=== PATIENT | female | born 1960 | race Caucasian/White ===

== ENCOUNTER → 2017-06-21 | Outpatient (CLI) | payer BC ==
[2015-01-28 10:10] VITALS: BP 148/93
[~2017-06-21] MED LIST: PHEN100C PO; WARF5TAB7 PO
== END | disposition home or self-care (01) ==
LOC: PMGWOUND 09:03
PROVIDERS: ATTEND Preventive Medicine Undersea and Hyperbaric Medicine
DX: I87.311 Chronic venous hypertension (idiopathic) with ulcer of right lower extremity (principal); L97.811 Non-pressure chronic ulcer of other part of right lower leg limited to breakdown of skin; Z86.718 Personal history of other venous thrombosis and embolism; K21.9 Gastro-esophageal reflux disease without esophagitis; Z87.891 Personal history of nicotine dependence; Z72.89 Other problems related to lifestyle
CPT/HCPCS: 97597

== ENCOUNTER → 2017-06-28 | Outpatient (CLI) | payer BC ==
[2015-01-28 10:10] VITALS: BP 148/93
== END | disposition home or self-care (01) ==
LOC: PMGWOUND 09:28
PROVIDERS: ATTEND Preventive Medicine Undersea and Hyperbaric Medicine
DX: I87.311 Chronic venous hypertension (idiopathic) with ulcer of right lower extremity (principal); L97.811 Non-pressure chronic ulcer of other part of right lower leg limited to breakdown of skin; Z86.718 Personal history of other venous thrombosis and embolism; K21.9 Gastro-esophageal reflux disease without esophagitis; Z87.891 Personal history of nicotine dependence
CPT/HCPCS: 29581; 97597

== ENCOUNTER → 2017-06-30 | Outpatient (CLI) | payer BC ==
[2015-01-28 10:10] VITALS: BP 148/93
== END | disposition home or self-care (01) ==
LOC: PMGWOUND 07:28
PROVIDERS: ATTEND Preventive Medicine Undersea and Hyperbaric Medicine
DX: I87.311 Chronic venous hypertension (idiopathic) with ulcer of right lower extremity (principal); L97.811 Non-pressure chronic ulcer of other part of right lower leg limited to breakdown of skin; K21.9 Gastro-esophageal reflux disease without esophagitis; Z86.718 Personal history of other venous thrombosis and embolism; Z87.891 Personal history of nicotine dependence; Z72.89 Other problems related to lifestyle
CPT/HCPCS: 29581

== ENCOUNTER → 2017-07-05 | Outpatient (CLI) | payer BC ==
[2015-01-28 10:10] VITALS: BP 148/93
== END | disposition home or self-care (01) ==
LOC: PMGWOUND 11:30
PROVIDERS: ATTEND Emergency Medicine Undersea and Hyperbaric Medicine
DX: I87.311 Chronic venous hypertension (idiopathic) with ulcer of right lower extremity (principal); L97.211 Non-pressure chronic ulcer of right calf limited to breakdown of skin; K21.9 Gastro-esophageal reflux disease without esophagitis; Z86.718 Personal history of other venous thrombosis and embolism; Z87.891 Personal history of nicotine dependence; Z72.89 Other problems related to lifestyle
CPT/HCPCS: 29581; 97597

== ENCOUNTER → 2017-07-12 | Outpatient (CLI) | payer BC ==
[2015-01-28 10:10] VITALS: BP 148/93
== END | disposition home or self-care (01) ==
LOC: PMGWOUND 11:31
PROVIDERS: ATTEND Preventive Medicine Undersea and Hyperbaric Medicine
DX: I87.311 Chronic venous hypertension (idiopathic) with ulcer of right lower extremity (principal); L97.211 Non-pressure chronic ulcer of right calf limited to breakdown of skin; K21.9 Gastro-esophageal reflux disease without esophagitis; Z87.891 Personal history of nicotine dependence; Z86.718 Personal history of other venous thrombosis and embolism; Z72.89 Other problems related to lifestyle
CPT/HCPCS: 29581; 97597

== ENCOUNTER → 2017-07-19 | Outpatient (CLI) | payer BC ==
[2015-01-28 10:10] VITALS: BP 148/93
== END | disposition home or self-care (01) ==
LOC: PMGWOUND 11:28
PROVIDERS: ATTEND Preventive Medicine Undersea and Hyperbaric Medicine
DX: I87.311 Chronic venous hypertension (idiopathic) with ulcer of right lower extremity (principal); L97.211 Non-pressure chronic ulcer of right calf limited to breakdown of skin; K21.9 Gastro-esophageal reflux disease without esophagitis; Z86.718 Personal history of other venous thrombosis and embolism; Z87.891 Personal history of nicotine dependence; Z72.89 Other problems related to lifestyle
CPT/HCPCS: 97597

== ENCOUNTER → 2017-08-04 | Outpatient (CLI) | payer BC ==
[2015-01-28 10:10] VITALS: BP 148/93
== END | disposition home or self-care (01) ==
LOC: PMGWOUND 11:39
PROVIDERS: ATTEND Preventive Medicine Undersea and Hyperbaric Medicine
DX: I87.311 Chronic venous hypertension (idiopathic) with ulcer of right lower extremity (principal); L97.211 Non-pressure chronic ulcer of right calf limited to breakdown of skin; K21.9 Gastro-esophageal reflux disease without esophagitis; Z87.891 Personal history of nicotine dependence; Z86.718 Personal history of other venous thrombosis and embolism; Z72.89 Other problems related to lifestyle
CPT/HCPCS: 29581

== ENCOUNTER → 2017-08-18 | Outpatient (CLI) | payer BC ==
[2015-01-28 10:10] VITALS: BP 148/93
== END | disposition home or self-care (01) ==
LOC: PMGWOUND 11:34
PROVIDERS: ATTEND Preventive Medicine Undersea and Hyperbaric Medicine
DX: I87.311 Chronic venous hypertension (idiopathic) with ulcer of right lower extremity (principal); L97.211 Non-pressure chronic ulcer of right calf limited to breakdown of skin; K21.9 Gastro-esophageal reflux disease without esophagitis; Z72.89 Other problems related to lifestyle; Z87.891 Personal history of nicotine dependence; Z86.718 Personal history of other venous thrombosis and embolism
CPT/HCPCS: 99214

== ENCOUNTER → 2018-03-20 | Outpatient (CLI) | payer BC | END | disposition home or self-care (01) | LOC: KCIC 09:09 | DX: M79.89 Other specified soft tissue disorders (principal); K21.9 Gastro-esophageal reflux disease without esophagitis | CPT/HCPCS: 73610 ==

== ENCOUNTER → 2019-02-25 | Outpatient (CLI) | payer BC ==
[2015-01-28 10:10] VITALS: BP 148/93
[~2019-02-25] MED LIST changes: +WARF-31 PO; -WARF5TAB7 PO
--- NOTE | 2019-02-25 11:38 | KCIC ---
MR of the right knee HISTORY: Right knee pain, anterior and posterior. Injury a few days ago. TECHNIQUE: Routine multiplanar sequences are obtained. FINDINGS: Degenerative signal within the posterior root of the medial meniscus. No evidence of lateral meniscal tear. The anterior and posterior cruciate ligaments are intact. Medial collateral ligament demonstrates a proximal sprain. Iliotibial band unremarkable. Fibular collateral ligament and biceps femoris tendon are intact. Popliteus tendon intact. Extensor mechanism intact. Moderate joint effusion. No evidence of osteochondral loose body. Moderate joint effusion. Severe chondral loss at the patella, less so at the femoral trochlea. There is also mild chondromalacia at the medial femoral condyle. No aggressive bone destruction. No acute fracture. Trace Adames's cyst. Diffuse subcutaneous edema. IMPRESSION: 1. Degenerative changes at the posterior root attachment to the medial meniscus without clear-cut avulsion. 2. Degenerative change. 3. Moderate joint effusion. Electronically signed by: Munir Lozano MD (02/25/2019 11:35 AM) [facility]
== END | disposition home or self-care (01) ==
LOC: KCIC MRI 08:32
PROVIDERS: ATTEND Physician Assistant
DX: S83.411A Sprain of medial collateral ligament of right knee, initial encounter (principal); M17.11 Unilateral primary osteoarthritis, right knee; M25.461 Effusion, right knee; M94.261 Chondromalacia, right knee; X58.XXXA Exposure to other specified factors, initial encounter; Y93.89 Activity, other specified; Y92.89 Other specified places as the place of occurrence of the external cause; Y99.8 Other external cause status
CPT/HCPCS: 73721

== ENCOUNTER → 2019-04-15 | Outpatient (CLI) | payer BC ==
[2015-01-28 10:10] VITALS: BP 148/93
--- NOTE | 2019-04-15 17:21 | KCIC ---
Bilateral digital screening mammograms: Reason for examination: Routine screening. Comparison is made to previous study dated 12/31/2014. Interpretation was made with the benefit of CAD. The skin and nipples show no abnormalities. No abnormal axillary lymph nodes are seen. The breast parenchyma is heterogeneously dense. (Breast density: Category C.) There appears to be a new nodular density in the left breast at the 2:30 C position measuring approximately 8.4 mm in size. Further evaluation with ultrasound is recommended. There are no other new dominant masses, suspicious calcifications or architectural distortion. Impression: 8.4 mm nodule at the 2:30 C position of the left breast. Recommend further evaluation with ultrasound. Your patient's mammogram demonstrates that she has dense breast tissue (breast density category C or D), which could hide abnormalities, and if she has other risk factors for breast cancer that have been identified, she might benefit from supplemental screening tests that may be suggested by you as her ordering physician. Dense breast tissue, in and of itself, is a relatively common condition. Therefore, this information is not provided to cause undue concern, but rather to raise your awareness and to promote discussion with your patient regarding the presence of other risk factors, in addition to dense breast tissue. Your patient's mammography results will be sent to her. BI-RAD Category 0: Incomplete. Needs additional imaging evaluation. "Our facility is accredited by the [employer] Mammography Program." This patient's information has been entered into a reminder system for the patient to be notified with the results of her examination and a target date for the next mammogram. Electronically signed by: Harriet Mcdermott MD (04/15/2019 5:18 PM) [facility]
== END | disposition home or self-care (01) ==
LOC: KCIC MAMMO 16:52
PROVIDERS: ATTEND Nurse Practitioner Family
DX: Z12.31 Encounter for screening mammogram for malignant neoplasm of breast (principal); N63.21 Unspecified lump in the left breast, upper outer quadrant
CPT/HCPCS: 77067

== ENCOUNTER → 2019-05-02 | Outpatient (CLI) | payer BC ==
[2015-01-28 10:10] VITALS: BP 148/93
--- NOTE | 2019-05-02 12:04 | KCIC ---
INDICATION: 58 year-old female presents for further evaluation of an abnormality seen on prior mammogram TECHNIQUE: Targeted high resolution sonography of the region of mammographic abnormality in the upper outer left breast was performed. COMPARISON: None ULTRASOUND FINDINGS: Targeted ultrasound of the upper outer left breast 2:30 position, 7 cm from the nipple: A 0.9 x 0.6 x 2.7 cm hypoechoic structure with thin internal septation and gentle lobulation is suspicious for a complicated cyst. IMPRESSION: Probably benign finding. RECOMMENDATION: Recommend follow up left breast ultrasound in 6 months. BI-RADS 3: Probably Benign Electronically signed by: Rajeev Truong MD (05/02/2019 12:01 PM) [facility]
== END | disposition home or self-care (01) ==
LOC: KCIC US 11:10
PROVIDERS: ATTEND Nurse Practitioner Family
DX: R92.8 Other abnormal and inconclusive findings on diagnostic imaging of breast (principal)
CPT/HCPCS: 76641

== ENCOUNTER → 2019-11-11 | Outpatient (CLI) | payer BC ==
[2015-01-28 10:10] VITALS: BP 148/93
--- NOTE | 2019-11-11 10:29 | KCIC ---
EXAM: Left breast sonogram. HISTORY: 59-year-old female presents for follow-up evaluation of a suspected complicated cyst. TECHNIQUE: Sonographic imaging of the left breast targeted to the site of prior abnormality was performed. COMPARISON: 05/02/2019. FINDINGS: There is a bilobed hypoechoic lesion at the 2:30 position 7 cm from the nipple measuring 6 mm in maximum dimension, decreased compared to a prior maximum measurement of 9 mm. The absence of internal blood flow and presence of slight posterior through transmission favors a complex cyst with internal septation. No convincing solid lesion is seen. No new lesion is seen. IMPRESSION: 1. Slight decreased size in a suspected complex cyst with internal septation at the 2:30 position 7 cm from the nipple. There is no new suspicious sonographic finding. 2. BI-RADS Category 2: Benign finding(s). The patient will be due for bilateral mammography in 5 months according to a previously established mammography interval. Electronically signed by: Maris Christopher MD (11/11/2019 10:26 AM) [id number]
== END | disposition home or self-care (01) ==
LOC: KCIC US 09:57
PROVIDERS: ATTEND Nurse Practitioner Family
DX: N64.89 Other specified disorders of breast (principal)
CPT/HCPCS: 76641

== ENCOUNTER → 2020-04-10 | Outpatient (CLI) | payer BC ==
[2015-01-28 10:10] VITALS: BP 148/93
[~2020-04-10] MED LIST changes: +SERT50TA PO
== END | disposition home or self-care (01) ==
LOC: LAB 14:25
PROVIDERS: ATTEND Surgery
DX: Z11.59 Encounter for screening for other viral diseases (principal)
CPT/HCPCS: U0003-CS

== ENCOUNTER 2020-04-15 06:06 | Day surgery (SDC) | payer BC ==
[~2020-04-15] VITALS: Ht 167.6 cm; Wt 90.5 kg
[2020-04-15] MEDS ORDERED: fentaNYL PF VIAL 100 MCG/2 ML VIAL IV PRN ×2 (07:00)
[2020-04-15] MEDS ORDERED: IV RINGERS,LACTATED 1000ML 1,000 ML IV SCH (07:00)
[2020-04-15] MEDS ORDERED: PROCHLORPERAZINE 10 MG/2 ML VIAL. IV PRN (07:00)
[2020-04-15] MEDS ORDERED: ONDANSETRON PF 4 MG/2 ML VIAL. IV PRN (07:00)
[2020-04-15] MEDS ORDERED: HYDROmorphone 2 MG/ML VIAL IV PRN (07:00)
[2020-04-15] MEDS ORDERED: fentaNYL PF VIAL 100 MCG/2 ML VIAL ONE ×4 (07:02→09:44)
[2020-04-15] MEDS ORDERED: MIDAZOLAM HCL/PF 2 MG/2 ML VIAL. ONE (07:02)
[2020-04-15] MEDS ORDERED: ONDANSETRON PF 4 MG/2 ML VIAL. ONE (07:03)
[2020-04-15] MEDS ORDERED: LIDOCAINE 2% PF 5 ML VIAL. ONE (07:03)
[2020-04-15] MEDS ORDERED: DEXAMETHASONE SOD PHOS 4 MG/ML VIAL ONE ×2 (07:03)
[2020-04-15] MEDS ORDERED: PROPOFOL 10 MG/ML (20ML) VIAL. IV ONE (07:03)
[2020-04-15] MEDS ORDERED: LIDOCAINE 1%/EPI 1:100,000 20 ML VIAL. ONE (07:09)
--- NOTE | 2020-04-15 10:26 | PDOC4 ---
Operative Note Operative Note Operative Note: Preoperative Diagnosis: Multiple lipomas bilateral thighs, left arm Postoperative Diagnosis: Same Procedure: Excision of multiple lipomas bilateral thighs, left arm Surgeon: Hector Anesthesia: General EBL: 25 mL Specimen: Multiple lipomas to pathology Drains: None Complications: None Indication: The patient is a 59-year-old female who was referred due to multiple lipomas involving her bilateral thighs and left arm. They have enlarge significantly and several are causing discomfort particularly of the left thigh. She requests excision and the areas of interest were marked preoperatively. The risks of surgery were discussed which include bleeding, infection, r ecurrence, pain, anesthetic risk, potential need for additional surgery procedure. She understands and would like to proceed. Description: The patient was taken the operating room and placed supine in the operating table. General anesthesia was performed. The bilateral anterior thighs and left arm were prepped with ChloraPrep and draped in a standard surgical manner. A similar technique was used at all locations. We began in the left thigh and a total of 8 incisions were made overlying the marked loca tions of lipomas. In the subcutaneous space there were multiple lobulated lipomas covering a wide area. Each was excised and they measured from up 1 up to 6 cm in greatest dimension. They were all sent to pathology for evaluation. Hemostasis was achieved with cautery and the incisions were closed with 4 Monocryl. In a similar manner 4 separate incisions were made of the right thigh and multiple lipomas were excised and sent to pathology. These incisions were also closed with 4-0 Monocryl. In the left posterior lateral aspect there was a single lipoma which was excised through a separate incision. This was also sent to pathology and closed with 4-0 Monocryl. In the left arm 2 lipomas were present 1 in the distal upper arm and 1 in the forearm. Both were excised through separate incisions and both measured 4 x 2 and half centimeters. The skin was closed at both locations with 4-0 Monocryl. Steri-Strips and dressings were then applied. The patient tolerated the procedure well and was sent to the recovery room in stable condition. At the end of the case all counts were correct ABRAHAM HERNANDEZ MD Apr 15, 2020 10:26
--- NOTE | 2020-04-15 10:29 | DISCH ---
DISCHARGE INSTRUCTIONS Condition on Discharge Condition on Discharge: Stable Activity After Discharge Activity Instructions for Disc: Activity as tolerated Diet after Discharge Diet after Discharge: Regular Wound Incision Care Wound/Incision Care: Other, see below (keep dressings clean and dry X 72 hours, may then remove and shower) Follow-Up Follow up with: Dr Hernandez in 2-3 weeks in office, call for appt [phone] ABRAHAM HERNANDEZ MD Apr 15, 2020 10:29
[2020-04-15] MEDS ORDERED: MORPHINE SULFATE 2 MG/ML VIAL. ONE (10:55)
[2020-04-15] MEDS: MORPHINE SULFATE 2 MG/ML VIAL. IV PRN ×2 (10:57→11:15)
[2020-04-15] MEDS ORDERED: oxyCODONE/APAP 5/325 1 TAB TABLET ONE (11:08)
[2020-04-15] MEDS ORDERED: oxyCODONE/APAP 5/325 1 TAB TABLET PO ONE (11:15)
[2020-04-15 11:30] VITALS: BP 161/95
--- NOTE | 2020-04-17 17:07 | PATHOLOGY ---
[facility] Accession Number: [id number] . 01 Material submitted: . PART A: thigh - LEFT THIGH LIPOMAS. Modifiers: left PART B: thigh - RIGHT THIGH LIPOMAS. Modifiers: right PART C: arm - LEFT ARM LIPOMAS. Modifiers: left . 01 Clinical history: . Multiple fatty tumors arms and legs . 02 Diagnosis: A. 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 . B. Segments of fibroadipose tissue, right thigh tumors excision: - Lipomas. . C. Segments of fibroadipose tissue, left arm tumors excision: - Lipomas, showing focal features of angiolipoma. (JPM:anup; 04/17/2020) [facility] 04/17/2020 1649 Local . 02 Comment: There is no evidence of malignancy. (JPM:anup; 04/17/2020) . 02 Electronically signed: . Matt Chow MD, Pathologist NPI- [id number] . 01 Gross description: . A. The specimen is received in formalin, labeled "Dye, Conchita, left thigh lipomas" and consists of multiple irregular to encapsulated segments of yellow adipose tissue measuring 19.0 x 15.5 x 3.6 cm in aggregate. Sectioning reveals homogeneous yellow cut surfaces with focal fibrous aspects and focal calcifications. [employer] sections are submitted in A1-A7 with A6 following decalcification. . B. The specimen is received in formalin, labeled "Dye, Conchita, right thigh lipomas" and consists of multiple irregular to encapsulated segments of yellow lobulated tissue measuring 11.3 x 8.6 x 2.7 cm in aggregate. Sectioning reveals homogeneous yellow cut surfaces with no gross lesions. [employer] sections are submitted in B1-B3. . C. The specimen is received in formalin, labeled "Dye, Conchita, left arm lipomas" and consists of 3 irregular to encapsulated segments of yellow lobulated tissue measuring 6.3 x 5.0 x 1.5 cm in aggregate. Sectioning reveals yellow homogeneous cut surfaces with focal hemorrhage. [employer] sections are submitted in C1-C2. (SDY; 04/16/2020) [facility] 04/16/2020 1310 Local . 02 Pathologist provided ICD-10: D17.24, D17.23, D17.22 . 02 CPT . 098319, 181792, 437535, 488276 Specimen Comment: A courtesy copy of this report has been sent to [phone], [phone] Specimen Comment: [id number] Specimen Comment: Report sent to / DR CADET Performed at: 01 [facility] [address], [place] [id number] MD Lam Shelton MD Phone: [phone] Performed at: 02 [facility] [address], [place] [id number] MD Matt Chow MD Phone: [phone]
== END 2020-04-15 11:56 | disposition home or self-care (01) ==
LOC: SURG 06:06
PROVIDERS: ATTEND Surgery
DX: D17.24 Benign lipomatous neoplasm of skin and subcutaneous tissue of left leg (principal); D17.23 Benign lipomatous neoplasm of skin and subcutaneous tissue of right leg; D17.22 Benign lipomatous neoplasm of skin and subcutaneous tissue of left arm; G40.909 Epilepsy, unspecified, not intractable, without status epilepticus; Z88.0 Allergy status to penicillin; Z88.8 Allergy status to other drugs, medicaments and biological substances; Z79.899 Other long term (current) drug therapy; Z86.718 Personal history of other venous thrombosis and embolism; Z98.890 Other specified postprocedural states; Z82.49 Family history of ischemic heart disease and other diseases of the circulatory system
CPT/HCPCS: 24071; 27337; A7015; J1100; J1956; J2250; J2270; J2405; J2704; J3010; J7120; 88304; 88311; J3490